=== PATIENT | male | born 1995 | race Caucasian/White ===

== ENCOUNTER 2018-03-31 21:25 | Emergency (ER) | payer OTHER ==
[~2018-03-31] VITALS: Ht 182.9 cm; Wt 92.5 kg
[~2018-03-31 21:25] MED LIST: MONT4; RANI150; Ultram50 MG PO; VARE1
== END 2018-03-31 22:09 | disposition home or self-care (01) ==
LOC: ER 21:25
DX: S60.041A Contusion of right ring finger without damage to nail, initial encounter (principal); S60.031A Contusion of right middle finger without damage to nail, initial encounter; Z88.5 Allergy status to narcotic agent; W22.8XXA Striking against or struck by other objects, initial encounter
CPT/HCPCS: 73130; 99283-25

== ENCOUNTER 2018-05-22 11:22 | Emergency (ER) | payer OTHER ==
[~2018-05-22] VITALS: Ht 182.9 cm; Wt 95.2 kg
[2018-05-22 12:38] LABS: BASOPHILS ABSOLUTE AUTO 0.04 K/mm3 (0.00-0.23); BASOPHILS PERCENT AUTO 1 % (0-2); EOSINOPHILS ABSOLUTE AUTO 0.09 K/mm3 (0.00-0.68); EOSINOPHILS PERCENT AUTO 1 % (0-6); Hematocrit 47.1 % (37.0-53.0); IMMATURE GRAN ABSOLUTE AUTO 0.01 K/mm3 (0.00-0.10); IMMATURE GRAN PERCENT AUTO 0 % (0-1); LYMPHOCYTES ABSOLUTE AUTO 1.86 K/mm3 (0.84-5.20); LYMPHOCYTES PERCENT AUTO 24 % (21-46); MONOCYTES ABSOLUTE AUTO 0.68 K/mm3 (0.16-1.47); MONOCYTES PERCENT AUTO 9 % (4-13); Mean Corpuscular HGB 30.4 pg (26.0-34.0); Mean Corpuscular Volume 90 fL (80-100); Mean Platelet Volume 9.9 fL (9.1-12.4); NEUTROPHILS ABSOLUTE AUTO 5.19 K/mm3 (1.96-9.15); NEUTROPHILS PERCENT AUTO 66 % (41-73); Platelet Count 372 K/mm3 (150-400); RDW Coefficient Variation 11.9 % (11.7-14.2); RDW Standard Deviation 38.8 fL (35.1-46.3); Red Blood Cell Count 5.26 M/mm3 (4.30-5.90); White Blood Cell Count 7.87 K/mm3 (4.00-11.30)
[2018-05-22 12:58] LABS: Alanine Aminotransfer (ALT/SGP 28 U/L (12-78); Albumin, Blood 4.4 g/dL (3.4-5.0); Albumin/Globulin Ratio 1.2 (0.8-1.8); Alk Phos 138 U/L (50-136); Anion Gap 8 mmol/L (6-16); Aspartate Aminotrans (AST/SGOT 17 U/L (12-37); Bilirubin, Total 0.5 mg/dL (0.1-1.0); Blood Urea Nitrogen 10 mg/dL (8-24); Bun/Creatinine Ratio 11.6 (12.0-20.0); CO2, Blood 25 mmol/L (21-32); Calcium, Blood 9.1 mg/dL (8.5-10.1); Chloride, Blood 107 mmol/L (98-108); Creatinine, Blood 0.86 mg/dL (0.60-1.20); Globulin, Blood 3.8 g/dL (2.2-4.0); Glomerular Filtration Rate >60 (60-); Glucose, Blood 83 mg/dL (70-99); Potassium, Blood 3.9 mmol/L (3.5-5.5); Sodium, Blood 140 mmol/L (136-145); Total Protein, Blood 8.2 g/dL (6.4-8.2)
[2018-05-22] MEDS ORDERED: Zofran Odt4 MG PO (13:31)
== END 2018-05-22 13:45 | disposition home or self-care (01) ==
LOC: ER 11:22
PROVIDERS: Physician Assistant
DX: R10.33 Periumbilical pain (principal); R10.13 Epigastric pain; R11.2 Nausea with vomiting, unspecified; R07.9 Chest pain, unspecified; F41.9 Anxiety disorder, unspecified; F17.290 Nicotine dependence, other tobacco product, uncomplicated; Z88.5 Allergy status to narcotic agent; Z79.899 Other long term (current) drug therapy
CPT/HCPCS: 36415; 71045; 80053; 83690; 85025; 96361; 96374; 99284-25; J2405; J7030

== ENCOUNTER 2018-09-09 18:02 | Emergency (ER) | payer OTHER ==
[~2018-09-09] VITALS: Ht 182.9 cm; Wt 84.8 kg
[~2018-09-09 18:02] MED LIST changes: +Amoxicillin500 MG PO; +IBUP600 PO; +ROBITUSSIN COU237 ML PO; +Zofran Odt4 MG PO
== END 2018-09-09 18:56 | disposition home or self-care (01) ==
LOC: ER 18:02
DX: S60.221A Contusion of right hand, initial encounter (principal); W22.8XXA Striking against or struck by other objects, initial encounter; Z88.5 Allergy status to narcotic agent; Z79.899 Other long term (current) drug therapy; F17.290 Nicotine dependence, other tobacco product, uncomplicated
CPT/HCPCS: 73130; 99283-25

== ENCOUNTER 2019-03-24 11:52 | Emergency (ER) | payer OTHER ==
[~2019-03-24] VITALS: Ht 182.9 cm; Wt 89.8 kg
[2019-03-24] MEDS ORDERED: NEOPOLHCSU RIGHTEAR (12:56)
== END 2019-03-24 13:13 | disposition home or self-care (01) ==
LOC: ER 11:52
DX: H60.91 Unspecified otitis externa, right ear (principal); Z88.5 Allergy status to narcotic agent; Z79.899 Other long term (current) drug therapy; F17.200 Nicotine dependence, unspecified, uncomplicated
CPT/HCPCS: 99282

== ENCOUNTER 2019-04-24 21:43 | Emergency (ER) | payer OTHER ==
[~2019-04-24 21:43] MED LIST changes: +NEOPOLHCSU RIGHTEAR
[2019-04-25] MEDS ORDERED: Floxin10 ML LEFTEAR (01:45)
== END 2019-04-24 22:38 | disposition left against medical advice (07) ==
LOC: ER 21:43
DX: Z53.21 Procedure and treatment not carried out due to patient leaving prior to being seen by health care provider (principal)

== ENCOUNTER 2019-04-24 23:44 | Emergency (ER) | payer OTHER ==
[~2019-04-24] VITALS: Ht 182.9 cm; Wt 88.9 kg
[2019-04-25] MEDS ORDERED: Floxin10 ML LEFTEAR (01:45)
== END 2019-04-25 02:00 | disposition home or self-care (01) ==
LOC: ER 23:44
DX: H66.92 Otitis media, unspecified, left ear (principal); H72.92 Unspecified perforation of tympanic membrane, left ear; Z88.5 Allergy status to narcotic agent; F17.200 Nicotine dependence, unspecified, uncomplicated
CPT/HCPCS: 99282

== ENCOUNTER → 2020-06-14 | Outpatient (CLI) | payer OTHER ==
[~2020-06-14] MED LIST changes: +CEFD300 PO; +Floxin10 ML LEFTEAR
[2020-06-16 15:28] LABS: CORNONAVIRUS (COVID19) CSH-NRL Negative (Negative)
== END | disposition home or self-care (01) ==
LOC: LAB EV 14:33 → LAB SHORT 14:33
PROVIDERS: Physician Assistant
DX: B34.9 Viral infection, unspecified (principal); Z20.828 Contact with and (suspected) exposure to other viral communicable diseases
CPT/HCPCS: U0003

== ENCOUNTER → 2021-05-08 | Outpatient (CLI) | payer OTHER | END | disposition home or self-care (01) | LOC: LAB SHORT 13:11 → LAB 13:11 | DX: R53.83 Other fatigue (principal) | CPT/HCPCS: 84443 ==

== ENCOUNTER 2021-08-11 15:51 | Emergency (ER) | payer OTHER ==
[~2021-08-11] VITALS: Ht 182.9 cm; Wt 86.2 kg
== END 2021-08-11 17:48 | disposition home or self-care (01) ==
LOC: ER 15:51
DX: S39.011A Strain of muscle, fascia and tendon of abdomen, initial encounter (principal); S70.12XA Contusion of left thigh, initial encounter; F17.200 Nicotine dependence, unspecified, uncomplicated; Z88.5 Allergy status to narcotic agent; W10.9XXA Fall (on) (from) unspecified stairs and steps, initial encounter
CPT/HCPCS: 73552; 76882; 99284-25

== ENCOUNTER 2021-08-16 12:45 | Emergency (ER) | payer OTHER ==
[~2021-08-16] VITALS: Ht 185.4 cm; Wt 93.5 kg
== END 2021-08-16 13:57 | disposition home or self-care (01) ==
LOC: ER 12:45
DX: S70.12XA Contusion of left thigh, initial encounter (principal); F17.290 Nicotine dependence, other tobacco product, uncomplicated; Z88.5 Allergy status to narcotic agent; X58.XXXA Exposure to other specified factors, initial encounter
CPT/HCPCS: 93971; 99283-25

== ENCOUNTER 2021-08-25 19:04 | Emergency (ER) | payer OTHER ==
[~2021-08-25] VITALS: Ht 185.4 cm; Wt 87.5 kg
== END 2021-08-25 20:37 | disposition home or self-care (01) ==
LOC: ER 19:04
DX: S80.12XA Contusion of left lower leg, initial encounter (principal); X58.XXXA Exposure to other specified factors, initial encounter; Z88.5 Allergy status to narcotic agent; F17.290 Nicotine dependence, other tobacco product, uncomplicated; N43.3 Hydrocele, unspecified
CPT/HCPCS: 76870; 99284-25

== ENCOUNTER 2022-01-02 23:11 | Emergency (ER) | payer SELFPAY ==
[~2022-01-02] VITALS: Ht 185.4 cm; Wt 83.5 kg
[2022-01-02] MEDS ORDERED: IBU800 MG PO (23:53)
[2022-01-02] MEDS ORDERED: NEOPOLHCSU LEFTEAR (23:53)
== END 2022-01-03 00:36 | disposition home or self-care (01) ==
LOC: ER 23:11
DX: H60.92 Unspecified otitis externa, left ear (principal); Z88.5 Allergy status to narcotic agent; F17.290 Nicotine dependence, other tobacco product, uncomplicated
CPT/HCPCS: A9270

== ENCOUNTER 2022-01-18 22:14 | Emergency (ER) | payer SELFPAY ==
[~2022-01-18] VITALS: Ht 188 cm; Wt 81.7 kg
[~2022-01-18 22:14] MED LIST changes: +IBU800 MG PO; +NEOPOLHCSU LEFTEAR
[2022-01-19 00:04] LABS: Influenza A, PCR NEGATIVE (NEGATIVE); Influenza B, PCR NEGATIVE (NEGATIVE); Resp Syncytial Virus, PCR NEGATIVE (NEGATIVE); SARS-Cov-2 (COVID-19) PCR, MMC NEGATIVE (NEGATIVE)
== END 2022-01-19 02:43 | disposition home or self-care (01) ==
LOC: ER 22:14
PROVIDERS: Physician Assistant
DX: B34.9 Viral infection, unspecified (principal); R07.89 Other chest pain; Z20.822 Contact with and (suspected) exposure to COVID-19
CPT/HCPCS: 0241U; 71046; 93005; 93010; 99285-25; A9270

== ENCOUNTER → 2022-01-27 | Outpatient (CLI) | payer SELFPAY | END | disposition home or self-care (01) | LOC: LAB SHORT 12:00 | DX: L25.9 Unspecified contact dermatitis, unspecified cause (principal) | CPT/HCPCS: 87070; 87075; 87077; 87147; 87186; 87205 ==

== ENCOUNTER 2022-03-10 21:49 | Emergency (ER) | payer OTHER ==
[~2022-03-10] VITALS: Ht 188 cm; Wt 90.7 kg
[2022-03-11] MEDS ORDERED: PRED20 PO (00:30)
[2022-03-11] MEDS ORDERED: CEPH500 PO (00:30)
== END 2022-03-11 01:05 | disposition home or self-care (01) ==
LOC: ER 21:49
DX: L25.9 Unspecified contact dermatitis, unspecified cause (principal); L03.114 Cellulitis of left upper limb; L03.113 Cellulitis of right upper limb; Z88.5 Allergy status to narcotic agent
CPT/HCPCS: 99283

== ENCOUNTER → 2022-07-01 | Outpatient (CLI) | payer OTHER ==
[~2022-07-01] MED LIST changes: +CEPH500 PO; +PRED20 PO
[2022-07-01 16:52] LABS: BASOPHILS ABSOLUTE AUTO 0.05 K/mm3 (0.00-0.23); BASOPHILS PERCENT AUTO 1 % (0-2); EOSINOPHILS ABSOLUTE AUTO 0.15 K/mm3 (0.00-0.68); EOSINOPHILS PERCENT AUTO 2 % (0-6); Hemoglobin 15.5 g/dL (13.5-17.5); IMMATURE GRAN ABSOLUTE AUTO 0.03 K/mm3 (0.00-0.10); IMMATURE GRAN PERCENT AUTO 0 % (0-1); LYMPHOCYTES ABSOLUTE AUTO 1.97 K/mm3 (0.84-5.20); LYMPHOCYTES PERCENT AUTO 20 % (21-46); MONOCYTES ABSOLUTE AUTO 0.53 K/mm3 (0.16-1.47); MONOCYTES PERCENT AUTO 5 % (4-13); Mean Corpuscular HGB 29.8 pg (26.0-34.0); Mean Corpuscular HGB Conc 34.4 g/dL (31.5-36.5); Mean Corpuscular Volume 87 fL (80-100); Mean Platelet Volume 9.5 fL (9.1-12.4); NEUTROPHILS ABSOLUTE AUTO 7.13 K/mm3 (1.96-9.15); NEUTROPHILS PERCENT AUTO 72 % (41-73); Platelet Count 435 K/mm3 (150-400); RDW Coefficient Variation 12.3 % (11.7-14.2); RDW Standard Deviation 38.8 fL (35.1-46.3); White Blood Cell Count 9.86 K/mm3 (4.00-11.30)
[2022-07-01 17:02] LABS: Albumin, Blood 4.5 g/dL (3.4-5.0); Albumin/Globulin Ratio 1.1 (0.8-1.8); Bilirubin, Total 0.3 mg/dL (0.1-1.0); Bun/Creatinine Ratio 12.5 (12.0-20.0); Calcium, Blood 9.3 mg/dL (8.5-10.1); Creatinine, Blood 0.88 mg/dL (0.60-1.20); Globulin, Blood 4.1 g/dL (2.2-4.0); Potassium, Blood 3.9 mmol/L (3.5-5.5); Total Protein, Blood 8.6 g/dL (6.4-8.2)
== END | disposition home or self-care (01) ==
LOC: LAB 16:47 → LAB SHORT 16:47
PROVIDERS: Physician Assistant Surgical
DX: R10.32 Left lower quadrant pain (principal)
CPT/HCPCS: 80053; 83690; 85025

== ENCOUNTER → 2022-07-08 | Outpatient (CLI) | payer OTHER | LOC: LAB SHORT 07:13 → PLD 07:13 | DX: R21 Rash and other nonspecific skin eruption (principal) | CPT/HCPCS: 88312 ==

== ENCOUNTER 2022-10-16 00:37 | Emergency (ER) | payer OTHER ==
[~2022-10-16] VITALS: Ht 185.4 cm; Wt 97.5 kg
[2022-10-16] MEDS ORDERED: PRED20 PO (02:37)
[2022-10-16] MEDS ORDERED: AMOCLA875 PO (02:37)
[2022-10-16] MEDS ORDERED: HYDR1TAB94 PO (02:37)
== END 2022-10-16 02:43 | disposition home or self-care (01) ==
LOC: ER 00:37
DX: K01.1 Impacted teeth (principal); F17.290 Nicotine dependence, other tobacco product, uncomplicated; Z88.5 Allergy status to narcotic agent; Z79.899 Other long term (current) drug therapy
CPT/HCPCS: A9270

== ENCOUNTER 2024-07-28 14:50 | Emergency (ER) | payer OTHER ==
[~2024-07-28] VITALS: Ht 188 cm; Wt 104.3 kg
[~2024-07-28 14:50] MED LIST changes: +AMOCLA875 PO; +HYDR1TAB94 PO
[2024-07-28 15:12] VITALS: BP 162/82
[2024-07-28] MEDS ORDERED: NEOPOLHCSU BOTHEARS (15:18)
== END 2024-07-28 15:19 | disposition home or self-care (01) ==
LOC: ER 14:50
DX: H60.91 Unspecified otitis externa, right ear (principal); F17.290 Nicotine dependence, other tobacco product, uncomplicated
CPT/HCPCS: 99282

== ENCOUNTER 2024-08-19 18:41 | Emergency (ER) | payer OTHER ==
[~2024-08-19] VITALS: Ht 185.4 cm; Wt 104.3 kg
[~2024-08-19 18:41] MED LIST changes: +NEOPOLHCSU BOTHEARS
[2024-08-19 18:52] VITALS: BP 145/84
[2024-08-19] MEDS ORDERED: Ketorolac Tromethamine 10 MG Tab PO ONE (22:40)
[2024-08-19] MEDS ORDERED: Amoxicillin/Clavulanate K 875 MG Tab PO ONE (22:40)
[2024-08-19] MEDS ORDERED: AMOCLA875 PO (22:42)
== END 2024-08-19 22:52 | disposition home or self-care (01) ==
LOC: ER 18:41
DX: H66.91 Otitis media, unspecified, right ear (principal); Z79.52 Long term (current) use of systemic steroids; Z79.899 Other long term (current) drug therapy; Z88.5 Allergy status to narcotic agent
CPT/HCPCS: 99282; A9270